=== PATIENT | female | born 1955 | race Caucasian/White ===

== ENCOUNTER → 2016-06-30 | Outpatient (CLI) | payer OTHER ==
[~2016-06-30] MED LIST: AMBIEN PO; ASPIRIN81 M1 PO; AUGMENTIN PO; COUMADIN7.5 MG PO; EFFIENT10 MG PO; HYDROCODON-ACE1 EACH PO; LISINOPRIL PO; LISINOPRIL20 MG PO; LOPRESSOR PO; LOVENOX100 MG/ML INJ; MOBIC PO; MULTIVITAMIN1 UDCAP PO; NEURONTIN PO; PERCOCET 51 UDTAB 5/ PO; PROZAC PO; SENNA PO; ZOCOR PO
--- NOTE | ~2016-06-30 | US77 ---
[facility]. [facility] A Service of [facility] & [facility] RADIOLOGY TEXT RESULTS PATIENT: STACI AQUINO LOCATION: [facility] : 55 UNIT #: [id number] AGE: [address]: MONSE LAUREN MD (INT MED) SEX: F ORDER DR: [id number] [address] [address] [id number] O MR#: [id number] Acc #: [id number] NAME: STACI AQUINO : 1955 SEX: F STUDY DATE/TIME: 06/30/2016 13:15 UNIT: [facility] ROOM: STUDY DESCRIPTION: US Kidney Bilateral Complete Attending Physician: Monse Lauren M.D. Referring Physician: Monse Lauren M.D. Ordering Physician: Monse Lauren M.D. Primary Care Physician: Monse Lauren M.D. MEDICAL IMAGING REPORT This report is preliminary unless electronic signature is present. EXAM Renal ultrasound 06/30/2016 INDICATIONS Right renal lesion on recent lumbar spine MRI. Observation for cyst versus mass. PROCEDURE Hernandez-scale and Doppler imaging of the kidneys and bladder. COMPARISON Lumbar spine MRI from 06/04/2016 FINDINGS Right kidney measures 10.7 cm. There is a 1.9 cm cyst in the upper pole right kidney. There is a 5.8 cm cyst exophytic from the right kidney. Left kidney measures 12.7 cm. No hydronephrosis. Unremarkable bladder. IMPRESSION 2 right renal cysts largest measuring up to 5.8 cm. Dictated by... Horacio Mar M.D. THIS IS AN ELECTRONICALLY VERIFIED REPORT Horacio Mar M.D. at 07/01/2016 6:57 AM Gwendolyn TD: 06/30/2016 16:30 JOB #: [id number] MEDICAL IMAGING REPORT
== END | disposition home or self-care (01) ==
LOC: SGUS 13:00
DX: N28.1 Cyst of kidney, acquired (principal)
CPT/HCPCS: 76775

== ENCOUNTER → 2016-07-23 | Outpatient (CLI) | payer OTHER ==
--- NOTE | ~2016-07-23 | CT3 ---
[facility] A Service of [facility] & [facility] RADIOLOGY TEXT RESULTS PATIENT: STACI AQUINO LOCATION: [facility] : 55 UNIT #: [id number] AGE: [address]: Bogdan Matthews MD SEX: F ORDER DR: [id number] [place] [id number] O MR#: [id number] Acc #: [id number] NAME: STACI AQUINO : 1955 SEX: F STUDY DATE/TIME: 07/23/2016 8:53 UNIT: [facility] ROOM: STUDY DESCRIPTION: CT Abd and Pelv WWo Cont Attending Physician: Bogdan Matthews M.D. Referring Physician: Bogdan Matthews M.D. Ordering Physician: Bogdan Matthews M.D. Primary Care Physician: Jose Lauren M.D. MEDICAL IMAGING REPORT This report is preliminary unless electronic signature is present. EXAM CT abdomen and pelvis without and with contrast INDICATIONS Indeterminate right renal lesion on recent lumbar spine MRI. Observation for renal cyst versus mass. PROCEDURE Unenhanced CT of the abdomen and pelvis. Postcontrast CT of the abdomen and pelvis multiphase acquisition through the kidneys and 5-minute delayed imaging through the abdomen and pelvis. This CT exam was performed with one or more of the following radiation dose reduction techniques: automatic exposure control, adjustment of mA and/or kV according to patient size, and iterative reconstruction. COMPARISON MRI lumbar spine 06/04/2016. Renal ultrasound 06/30/[address] of the abdomen and pelvis from 05/21/2011. FINDINGS Abdomen without contrast: Included lung bases are clear. Previous cholecystectomy. No radiodense renal calculus. No radiodense ureteral calculus or hydronephrosis. Pelvis without contrast: No radiodense bladder calculus. Abdomen with contrast: Kidneys enhance symmetrically. There is a 5 cm benign cyst exophytic from the posterolateral baf-va-wfrod right kidney. There is a 1.5 cm cyst exophytic in the lower pole of the right kidney. No enhancing renal mass. Kidneys show symmetric excretion of contrast. The right ureter and distal left ureter are not well opacified. [facility]. [facility] A Service of [facility] & [facility] RADIOLOGY TEXT RESULTS PATIENT: STACI AQUINO LOCATION: [facility] : 55 UNIT #: [id number] AGE: [address]: Bogdan Matthews MD SEX: F ORDER DR: Liver, spleen, adrenal glands, pancreas unremarkable. Bowel loops are nondilated. Uncomplicated left-sided colonic diverticula. Pelvis with contrast: No bladder mass. Previous hysterectomy. No aggressive appearing bone lesion. Probable 2.3 cm right Bartholin gland cyst. IMPRESSION Two renal cysts largest exophytic from the posterolateral right kidney, measures up to 5 cm. There is no enhancing renal mass. Dictated by... Horacio Mar M.D. THIS IS AN ELECTRONICALLY VERIFIED REPORT Horacio Mar M.D. at 07/23/2016 4:51 PM LESLIE/dominick TD: 07/23/2016 11:02 JOB #: [id number] MEDICAL IMAGING REPORT Page 1 of 1
[2016-07-23 08:55] LABS: POC - CREATININE 1.04 mg/dL (0.44-1.03)
== END | disposition home or self-care (01) ==
LOC: SCT 08:31
PROVIDERS: Urology
DX: N28.1 Cyst of kidney, acquired (principal); N39.41 Urge incontinence; R31.0 Gross hematuria
CPT/HCPCS: 74178; 82565; Q9967

== ENCOUNTER → 2016-10-15 | Outpatient (CLI) | payer OTHER ==
--- NOTE | ~2016-10-15 | MY11 ---
[facility] A Service of [facility] RADIOLOGY TEXT RESULTS PATIENT: STACI AQUINO LOCATION: [facility] [place] : 55 UNIT #: [id number] AGE: [address]: MONSE LAUREN MD (INT MED) SEX: F ORDER DR: [id number] [address] [address] [id number] P MR#: [id number] Acc #: [id number] NAME: STACI AQUINO : 1955 SEX: F STUDY DATE/TIME: 10/15/2016 13:28 UNIT: [facility] [place] ROOM: STUDY DESCRIPTION: MY Mammogram Screening Dig Rich Attending Physician: Monse Lauren M.D. Referring Physician: Monse Lauren M.D. Ordering Physician: Monse Lauren M.D. Primary Care Physician: Monse Lauren M.D. MEDICAL IMAGING REPORT This report is preliminary unless electronic signature is present. EXAM Digital screening mammogram 10/15/2016 HISTORY 61-year-old woman, positive family history, mother age 65, maternal aunt age 60. Prior breast reduction surgery. COMPARISON STUDIES Comparison mammograms date to 11/24/2005 with most recent screening comparison 02/24/2015. FINDINGS Digital imaging of each breast was completed utilizing a two-view examination of each breast in craniocaudal and mediolateral-oblique projections. Review and interpretation of digital mammograms include a second review in conjunction with FDA-approved CAD device. There is a normal parenchymal presentation bilaterally consistent with the patient's age. There are no breast masses imaged and no parenchymal asymmetry is visualized. There are no suspicious microcalcifications and I see no focal architectural disturbance. IMPRESSION Negative screening digital mammogram. One-year followup recommended. Patients over the age of 40 are entered into a reminder system with target due date for the next mammogram. A result letter will also be sent to the patient. BIRADS: 1 Negative ADDENDUM Breast parenchyma is fatty replaced [facility] A Service [facility] RADIOLOGY TEXT RESULTS PATIENT: STACI AQUINO LOCATION: [facility] [place] : 55 UNIT #: [id number] AGE: [address]: MONSE LAUREN MD (INT MED) SEX: F ORDER DR: Dictated by... Regulo Burnett M.D. THIS IS AN ELECTRONICALLY VERIFIED REPORT Regulo Burnett M.D. at 10/18/2016 8:05 AM Kaity TD: 10/15/2016 16:42 JOB #: [id number] MEDICAL IMAGING REPORT Page 1 of 1
== END | disposition home or self-care (01) ==
LOC: SMAM 07:16
DX: Z12.31 Encounter for screening mammogram for malignant neoplasm of breast (principal); Z80.3 Family history of malignant neoplasm of breast; Z98.890 Other specified postprocedural states
CPT/HCPCS: G0202